=== PATIENT | female | born 1980 | race Caucasian/White ===

== ENCOUNTER 2016-07-24 15:05 | Inpatient (IN) | payer OTHER ==
--- NOTE | ~2016-07-24 | OR ---
Unit #: [id number] #: [id number] Patient: MARISOL STEVE [id number] [address] [place], [place] [address] [id number] I MR#: [id number] NAME: MARISOL STEVE ROOM: 218 Date of Procedure: 07/25/2016 Admission Date: 07/24/2016 Surgeon: Juan Taylor M.D. : 1980 Attending Physician: Lon Watts M.D. Primary Care Physician: Jeff Azevedo M.D. OPERATIVE REPORT PREOPERATIVE DIAGNOSES Abdominal pain, reported rectal bleeding, stable hemoglobin. POSTOPERATIVE DIAGNOSIS Mild gastritis. Otherwise normal upper and lower endoscopy. ANESTHESIA Monitored anesthesia. INDICATIONS FOR PROCEDURE A 36-year-old female with history of adenomatous polyps of the colon and family history of colon cancer, who was admitted to hospital because of abdominal pain and reported GI bleed. She also complains of nausea. Also on CT scan, there was question of an intraabdominal mass in the lower abdomen, but on further review it appears to have been present since 2012. 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 DESCRIPTION OF PROCEDURE The patient was transported from her hospital room to the endoscopy suite. After appropriate monitoring and positioning, a bite block was placed and she was sedated by the anesthesiologist. Endoscope was passed through the oral cavity in the esophagus. Under direct vision, we passed through the esophagus and into the stomach, insufflated the stomach, and she had [id number] pangastritis. Biopsy for CLOtest was taken and then biopsy for pathology was taken. I easily passed through the pylorus down the third and fourth portion of duodenum. Duodenum and duodenal bulb were normal. As, I came back in the stomach, I retroflexed the scope and no other findings in the upper fundus or cardia were noted. As, I came back in a retrograde fashion, GE junction was well demarcated with no evidence of esophagitis or [place] mucosa. The esophageal mucosa was normal and the larynx was normal. After completion of the upper scope, the patient was repositioned. On rectal examination, there was no local anorectal pathology. Digital examination was normal. There was no hemorrhoidal disease, no fissure, no fistula. Colonoscope was passed through the anal verge and throughout the extent of the colon to the cecum, where the appendiceal orifice and ileocecal valve were photodocumented. On careful antegrade and retrograde visualization, no abnormalities were noted throughout the colon and rectum. In particular, I retroflexed the scope in the rectum and there was no internal hemorrhoidal disease. Preoperatively, the patient mentioned she thought there might be a foreign body in rectum from her enema, but no foreign body was encountered. The Unit #: [id number] #: [id number] Patient: MARISOL STEVE patient tolerated the procedure well and transported to recovery in stable condition. Findings were reported to her fiance. I will resume her regular diet. On review of the CT scan, I think the finding of fatty necrosis or omental infarction has been stable for at least 4 years and is of a little clinical significance. Dictated by... Lamar Allison/jair TD: 07/26/2016 03:46 JOB #: [id number] OPERATIVE REPORT Page 1 of 1 X Juan Taylor MD PROCEDURE OPERATIVE NOTE
--- NOTE | ~2016-07-24 | MR2 ---
[facility] A Service of [facility] & [facility] RADIOLOGY TEXT RESULTS PATIENT: MARISOL STEVE LOCATION: [facility] 218-01 : 80 UNIT #: [id number] AGE: [address]: Lon Watts MD SEX: F ORDER DR: [id number] [facility] [address] [place], [place] [address] [id number] I MR#: [id number] Acc #: [id number] NAME: MARISOL STEVE. : 1980 SEX: F STUDY DATE/TIME: 07/27/2016 12:16 UNIT: [facility] ROOM: 218 STUDY DESCRIPTION: MR Abdomen WWo Cont Attending Physician: Lon Watts M.D. Ordering Physician: Lon Watts M.D. Primary Care Physician: Jeff Azevedo M.D. MRI CENTER REPORT This report is preliminary unless electronic signature is present. EXAM MRI abdomen without and with IV gadolinium. HISTORY Abdomen pain and vomiting for 1 week. FINDINGS MRI abdomen was performed without and with IV gadolinium. No hepatic mass or biliary dilatation. Cholecystectomy. Mild splenic enlargement measuring 14 cm. The pancreas, kidneys, and adrenal glands are normal. No ascites. Normal caliber abdominal aorta. No biliary or pancreatic ductal dilatation. IMPRESSION 1. No suspicious findings in the abdomen. No abnormal enhancement. 2. Cholecystectomy. 3. Mild splenic enlargement measuring 14 cm. Dictated by... Liam Thomas M.D. THIS IS AN ELECTRONICALLY VERIFIED REPORT Liam Thomas M.D. at 07/28/2016 10:57 PM DFL/ihsan TD: 07/28/2016 03:48 JOB #: [id number] MRI CENTER REPORT Page 1 of 1 COPY
--- NOTE | ~2016-07-24 | CT2 ---
[facility] A Service of [facility] & [facility] RADIOLOGY TEXT RESULTS PATIENT: MARISOL STEVE LOCATION: [facility] 218-01 : 80 UNIT #: [id number] AGE: [address]: Lon Watts MD SEX: F ORDER DR: [id number] [facility] [address] [place], [place] [address] [id number] I MR#: [id number] Acc #: [id number] NAME: MARISOL STEVE. : 1980 SEX: F STUDY DATE/TIME: 07/26/2016 11:02 UNIT: C2A ROOM: 218 STUDY DESCRIPTION: CT Abd and Pelv W Cont Attending Physician: Lon Watts M.D. Ordering Physician: Bruce Davidson III, M.D. Primary Care Physician: Jeff Azevedo M.D. MEDICAL IMAGING REPORT This report is preliminary unless electronic signature is present EXAM CT abdomen and pelvis with contrast INDICATIONS Lower pelvic pain for 1 week. Nausea for 1 week, rectal bleeding for 3-[address] scan of the abdomen and pelvis was performed following the administration of IV contrast. Coronal and sagittal reformatted images were obtained. Comparison is made with 06/23/2014. This CT exam was performed with one or more of the following radiation dose reduction techniques: automatic exposure control, adjustment of mA and/or kV according to patient size, and iterative reconstruction. FINDINGS Lung bases are clear. The liver is unremarkable. Cholecystectomy. Spleen is unremarkable. The kidneys, adrenal glands and pancreas are unremarkable. Redemonstrated in the lower anterior portion of the peritoneum just beneath the rectus musculature is a lobulated soft tissue attenuation nodule which has been present since at least May 2014 and has slightly decreased in size. On today's study it measures approximately 2.3 x 1.6 cm. On the previous study it measured 2.4 x 1.9 cm. The exact etiology is uncertain however given its interval decrease in size, this would favor a benign etiology. Pelvis: The colon is unremarkable. The appendix is normal. There is no free fluid. The bone windows are unremarkable. STS. [facility] A Service of [facility] & [facility] RADIOLOGY TEXT RESULTS PATIENT: MARISOL STEVE LOCATION: [place] [address] : [birth year] UNIT #: [id number] AGE: [address]: Lon Watts MD SEX: F ORDER DR: IMPRESSION 1. There is a chronic soft tissue attenuation nodular structure within the anterior portion of the abdomen just beneath the rectus musculature as described above. It has been present since at least May 2014 and has been decreased in size slightly. The exact etiology is uncertain however it is of doubtful clinical significance, and the interval decrease in size favors a benign etiology. 2. There has been a prior cholecystectomy. 3. The remainder of the study is unremarkable. Dictated by... Justin Tarango M.D. THIS IS AN ELECTRONICALLY VERIFIED REPORT Justin Tarango M.D. at 07/26/2016 4:05 PM NABOR/james TD: 07/26/2016 12:48 JOB #: [id number] MEDICAL IMAGING REPORT Page 1 of 1 COPY
--- NOTE | ~2016-07-24 | DS ---
Unit #: [id number] #: [id number] Patient: CHRISTINA HARDEN [id number] [address] [place], [place] [address] [id number] I MR#: [id number] NAME: CHRISTINA HARDEN. ROOM: 218 Age: 36 Sex: F Admission Date: 07/24/2016 : 1980 Discharge Date: 07/29/2016 Attending Physician: Lon Watts M.D. Primary Care Physician: Jeff Azevedo M.D. DISCHARGE SUMMARY CONSULTATION DURING HOSPITALIZATION 1. Dr. Berry. 2. Dr. Taylor. PROCEDURE PERFORMED DURING HOSPITALIZATION 1. Dr. Taylor - status post endoscope. Patient has mild to moderate band gastritis. Biopsies have been taken, results are still pending. Patient's duodenum and duodenal bulb are normal. 2. Status post colonoscopy. No abnormality was noted throughout the colon and rectum as per Dr. Taylor. There were no internal hemorrhoids. Preoperatively, patient had mentioned she thought there was a foreign body in the rectum from her enema but no foreign body was encountered. LAB WORKUP ON DISCHARGE Sodium 134, potassium 4.1, chloride 104, BUN 11, creatinine 1.0, calcium 8.2, WBC 8.2, hemoglobin 15.1, hematocrit 46.4 and platelet count of 219. Urine culture is no growth. PT/INR is 10.4 and 1.0. RADIOLOGICAL STUDIES DONE DURING HOSPITALIZATION 1. CT scan of the abdomen and pelvis which showed chronic soft tissue attenuation nodular structure within the anterior portion of the abdomen just beneath the rectus musculature as described in explanation. It has been present since 2012. It is of doubtful clinical significance and interval decrease in size favors a benign etiology. 2. MRI of the abdomen was done which shows no suspicious finding in the abdomen. No abnormal enhancement. Cholecystectomy. Mild splenic enlargement measuring 14 cm. 3. MRI of the pelvis was done that showed stable appearance of the rounded lobulated nodular lesion in the anterior left pelvis. This measures 1.9 x 2.5 cm. Given its long-term stability, it is likely benign. This lesion could be nodular fibrotic scarring. The patient does have a small ovarian cyst. HOSPITAL COURSE Ms. Christina Harden is a 36-year-old female who was admitted by Dr. Watts with abdominal pain and questionable GI bleed. On CT scan, there was a question of abdominal mass although that has been present since 2012. The patient does have a history of familial polyposis and family history of colon cancer. The patient was admitted to Med/Surg unit Unit #: [id number] #: [id number] Patient: CHRISTINA HARDEN at [facility]. LSA was consulted. Patient had EGD and colonoscopy done. Results are as above. Patient is stable. Her hemoglobin is stable. Doubt there was any major bleeding. We did try to get a percutaneous CT guided biopsy although, per interventional radiologist, this is too small to do any biopsy and it seemed like it is a benign lesion. The patient is being discharged home. I have given extensive information. I have given even the printout of CT scans from 2014 and from 2016 and explained to patient at length that it seems to be a chronic fibrotic scarring possible, even per Dr. Taylor. Per Dr. Taylor, it could be a fatty necrosis or omental infarction which has been stable for at least four years. It is of little significance. This was explained to patient at length. Nurse was present in the room while discussion. EXAMINATION ON DISCHARGE Blood pressure is 142/72, respiratory rate 18, pulse is 79, temperature 98.0, oxygen saturation is 100%. CHEST has fair air entry. CVS is regular rhythm. ABDOMEN is soft. DISCHARGE INSTRUCTIONS The patient is being discharged home in stable condition. MEDICATIONS As per Med Rec. Follow up with primary care provider in one week. Follow up with Dr. Alcala in three to four weeks. DISCHARGE MEDICATIONS Most of the medications are as home medications which are: 1. Imitrex, one to two tablets as needed for migraine. 2. Zocor 10 mg daily. 3. Ibuprofen 800 mg q.8 p.r.n. which we are advising patient to hold off on because she does have some mild gastritis. 4. Pantoprazole 40 mg daily. 5. Cyanocobalamin 1000 mcg injection q. monthly, continue home dose. 6. Vitamin D, continue home dose. 7. Topamax 100 mg b.i.d. 8. Wellbutrin 150 mg b.i.d. 9. Desyrel 100 mg at bedtime. 10. Zofran on a p.r.n. basis. 11. Hydroxyzine 25 mg t.i.d. 12. Ambien 10 mg q. h.s. 13. Propranolol 10 mg daily. Dictated by... Lamar Tyler/rey TD: 07/30/2016 08:06 JOB #: [id number] Unit #: [id number] #: [id number] Patient: CHRISTINA HARDEN DISCHARGE SUMMARY Page 1 of 1 X Tatyana Mosqueda MD X DISCHARGE SUMMARY
--- NOTE | ~2016-07-24 | CO ---
Unit #: [id number] #: [id number] Patient: MARISOL STEVE [id number] [address] [place], [place] [address] [id number] I MR#: [id number] NAME: MARISOL STEVE. ROOM: 218 Age: 36 Sex: F Admission Date: 07/24/2016 : 1980 Attending Physician: Lon Watts M.D. Primary Care Physician: Jeff Azevedo M.D. Consultation Date: 07/24/2016 CONSULTATION REPORT BRIEF HISTORY Patient is a 36 year old with a five-day history of abdominal pain which she describes as suprapubic to epigastric type pain, intermittent crampy-type pain. She has also had bright red blood per rectum and dark blood over the same timeframe. No fevers or chills. No trauma. She does have a history of colonic polyps, has had multiple colonoscopies and no colon resection. PAST HISTORY Gastroesophageal reflux disease. She has had a laparoscopy. MEDICTAIONS Propranolol, simvastatin, proton pump inhibitor, Ambien, trazodone. SOCIAL HISTORY No smoking. No alcohol. FAMILY HISTORY Strong family history of colon cancer with mother dying of colon cancer at age 50. REVIEW OF SYSTEMS No cardiopulmonary complaints at this time. PHYSICAL EXAMINATION GENERAL: She is awake, alert, appropriate. VITAL SIGNS: Currently afebrile. HEENT: Unremarkable. NECK: Supple. No JVD. Trachea midline. LUNGS: Clear to auscultation bilaterally. Breath sounds symmetric. CARDIOVASCULAR: Regular rate and rhythm. ABDOMEN: Her abdomen is soft. It is diffusely tender. No rebound. No masses or palpable hernias. EXTREMITIES: No cyanosis, clubbing or edema. DIAGNOSTIC STUDIES LABORATORY: Labs show a white count of 11, hemoglobin 15. IMAGING: CT scan shows a 3 cm mass in the anterior pelvis separate from the colon. ASSESSMENT 1. Rectal bleed. Unit #: [id number] #: [id number] Patient: MARISOL STEVE 2. A history of colonic polyps. 3. Abdominal mass. PLAN Recommend EGD and colonoscopy. Would then consider diagnostic laparoscopy. Dictated by... Umang Berry M.D. REVA/aaron TD: 07/24/2016 22:04 JOB #: [id number] CONSULTATION REPORT Page 1 of 1 X Umang Berry MD CONSULTATION REPORT
--- NOTE | ~2016-07-24 | BMI ---
[facility] Nutrition Therapy DATE: 07/25/16 Patient: MARISOL STEVE Physician: MOHSEN Address: [address] Room/Bed: [address] [place] [address], Zip: [place] [address] Admit Date: 07/24/16 Date of : [birth year] Height: 5 2 Weight: 239 108.86 HIGH BMI NOTE: DX: 36 Y.O. FEMALE ADMITTED FOR GIB ANTHROPOMETRICS: 5'2", WT: 239# (109 KG), BMI: 43.7 DIET: REGULAR INTERVENTION: 1. REGULAR DIET RECOMMENDATIONS: 1. RECOMMEND TO CHANGE CURRENT DIET ORDER TO HH TO PROMOTE GRADUAL WEIGHT LOSS TOWARDS HEALTHY BMI (19.0-25.0) OR +/-10%IBW RD WILL F/U PER PROTOCOL Respectfully, AMY LION MS, RD, LD Food and Nutritional Services [facility] cc: client file
--- NOTE | ~2016-07-24 | HP ---
Unit #: [id number] #: [id number] Patient: CHRISTINA STEVE [id number] [address] [address] [id number] I MR#: [id number] NAME: CHRISTINA STEVE. ROOM: 218 Age: 36 Sex: F Admission Date: 07/24/2016 : 1980 Attending Physician: Lon Watts M.D. Primary Care Physician: Jeff Azevedo M.D. HISTORY AND PHYSICAL ADMISSION DIAGNOSES 1. Abdominal pain. 2. Questionable gastrointestinal bleed. 3. Abdominal mass with the history of familial polyposis and family history of colon cancer. 4. History of chronic headaches. 5. Dyslipidemia. 6. Depression. HISTORY OF PRESENT ILLNESS Ms. Christina Steve is a 36-year-old female, a patient of Dr. Jeff Azevedo, who was seen by Dr. Azevedo and worked up and was diagnosed with the abdominal mass as an outpatient. Patient does have a history of familial polyposis. She was under extensive surveillance with the multiple c-scopes throughout her young life. Patient was having abdominal pain along with some bloody stools for last five days, again was seen by Dr. Azevedo, was diagnosed with the abdominal mass and UTI and was directly admitted. She is denying any acute chest pain, denying any headache or dizziness, complains of subjective fever and chills, denies any nausea or vomiting, complains about lower abdominal pain which is sharp and throughout the abdomen, without any radiation to any other parts of the body. No alleviating or aggravating factors. Pain is intermittent, 6 or 8/10. Patient also complains of some bloody stools, denies any bloody emesis. REVIEW OF SYSTEMS A 12-point review of systems on this patient is basically negative except as above. PAST MEDICAL HISTORY Past medical history is significant for: 1. History of depression. 2. Dyslipidemia. 3. Also colon polyps. PAST SURGICAL HISTORY Past surgical history is significant for: 1. Multiple c-scopes. 2. Cholecystectomy. HOME MEDICATIONS Home medications include sumatriptan, ibuprofen, Zofran, vitamin D2, hydroxyzine, topiramate, Zocor, propranolol, Wellbutrin, pantoprazole, Unit #: [id number] #: [id number] Patient: CHRISTINA STEVE Ambien, Desyrel and B12. ALLERGIES Morphine. SOCIAL HISTORY She is an active smoker, denies any alcohol or illicit drugs. FAMILY HISTORY As above, positive for colon cancer. PHYSICAL EXAMINATION GENERAL: On physical exam patient is a 36-year-old female not in acute distress. VITAL SIGNS: Blood pressure 131/86. Heart rate is 86. Respirations 18. Temperature 98.9. HEENT: Head is atraumatic. Pupils equal, round and reactive to light and accommodation. Extraocular muscles intact. Oropharynx clear. NECK: Neck is supple. No mass. No JVD. No bruits. CHEST: Chest is diminished at the bases, otherwise clear. CARDIOVASCULAR EXAM: With S1 and S2, no murmurs. ABDOMEN: Abdomen is soft, obese, tender to palpation throughout without any rebound or acute abdominal signs. Bowel sounds are diminished. EXTREMITIES: Lower extremities without any edema. DIAGNOSTIC STUDIES LABORATORY: White count 11.7, hemoglobin and hematocrit 15.8 and 48. Chemistry basically unremarkable. ASSESSMENT AND PLAN 1. Abdominal pain with the questionable gastrointestinal bleed: Continue IV PPI. Monitor hemoglobin and hematocrit, stable. Continue supportive care. She is on Dilaudid and Zofran and is status post evaluation per surgery regarding abdominal mass. Scheduled for c-scope in the morning. 2. History of chronic headache: Continue home meds. 3. Dyslipidemia: Continue home meds. 4. Depression: Continue home meds. 5. GI and DVT prophylaxis: Continue PPI and SCDs. 6. Questionable urinary tract infection: Check urine culture and UA. Continue empiric Rocephin. Dictated by Lon Watts M.D. OC/aaron TD: 07/24/2016 18:30 JOB #: [id number] Unit #: [id number] #: [id number] Patient: CHRISTINA STEVE HISTORY AND PHYSICAL Page 1 of 1 X Lon Watts MD HISTORY AND PHYSICAL
--- NOTE | ~2016-07-24 | MR151 ---
[facility] A Service of [facility] & [facility] RADIOLOGY TEXT RESULTS PATIENT: MARISOL STEVE LOCATION: A 218-01 : 80 UNIT #: [id number] AGE: [address]: Lon Watts MD SEX: F ORDER DR: [id number] [facility] [address] [place], [place] [address] [id number] I MR#: [id number] Acc #: [id number] NAME: MARISOL STEVE. : 1980 SEX: F STUDY DATE/TIME: 07/27/2016 15:30 UNIT: [facility] ROOM: 218 STUDY DESCRIPTION: MR Pelvis WWo Contrast Attending Physician: Lon Watts M.D. Ordering Physician: Daniel Cardona M.D. Primary Care Physician: Jeff Azevedo M.D. MRI CENTER REPORT This report is preliminary unless electronic signature is present. EXAM MRI pelvis without and with IV gadolinium. HISTORY Abdomen pain and vomiting. Low abdomen pain for 1 week. FINDINGS MRI pelvis was performed without and with IV gadolinium. FINDINGS There is a slightly lobulated rounded mass in the anterior pelvis to the left of midline, deep to the left rectus muscle, intermediate to low signal intensity on both T1 and T2, corresponding to the nodular lesion noted on multiple prior CTs 05/04/2012, 06/23/2014 and 07/26/2016. This measures approximately 1.9 x 2.5 cm, stable compared to 06/23/2014, and the long-term stability favors a benign etiology. The lesion enhances moderately with gadolinium. No additional soft tissue nodule. There are small bilateral ovarian cysts, likely incidental and physiologic. These measure up to 2.5 cm in the left ovary. Minimal free fluid in the pelvis is also likely incidental and physiologic. Hysterectomy. No bowel dilatation. IMPRESSION 1. Stable appearance of the rounded lobulated nodular lesion in the anterior left pelvis just to the left of midline deep to the rectus abdominus muscle, corresponding to findings on recent CT and similar to findings on older CT examinations as well. This measures 1.9 cm x 2.5 cm and given its long-term stability is likely benign. This lesion enhances with gadolinium uniformly. Consider nodular fibrotic scarring. No additional pelvic nodule or mass. 2. Minimal free fluid in the pelvis and small ovarian cysts are incidental and physiologic. 3. Normal appendix. [facility]. [facility] A Service of [facility] & [facility] RADIOLOGY TEXT RESULTS PATIENT: MARISOL STEVE LOCATION: [place] [address] : [birth year] UNIT #: [id number] AGE: [address]: Lon Watts MD SEX: F ORDER DR: 4. Hysterectomy. Dictated by... Liam Thomas M.D. THIS IS AN ELECTRONICALLY VERIFIED REPORT Liam Thomas M.D. at 07/28/2016 10:57 PM DFL/ihsan TD: 07/28/2016 03:56 JOB #: [id number] MRI CENTER REPORT Page 1 of 1 COPY
[~2016-07-24 15:05] MED LIST: ACETAMINOPHEN PR; AMBIEN PO; ANAPROX DS550 M1 PO; BENTYL20 MG PO; DESYREL100 MG PO; EFFEXOR XR150 MG; FLEXERIL10 MG PO; HYDROXYZINE HCL25 M1 PO; IBUPROFEN800 MG PO; KLONOPIN0.5 MG; NITROFURANTOIN100 M3 PO; PANTOPRAZOLE SO40 MG PO; PERCOCET10 PO; PHENERGAN12.5 MG/SU PR; PHENERGAN25 M1 PO; PHENERGAN25 MG PO; PHENERGAN50 MG/SUPP; PREDNISONE PO; PROPRANOLOL HCL10 MG PO; PROTONIX PO; REQUIP0.25 MG PO; SUMATRIPTAN SU100 MG PO; TOPIRAMATE100 MG PO; TUMS500 MG; VITAMIN B 12 INJECT; VITAMIN D250000 UNIT PO; WELLBUTRIN SR150 M1 PO; ZOCOR10 MG PO; ZOFRAN PO
[2016-07-24 15:26] LABS: HEMOGLOBIN 15.8 gm/dL (12.0-16.0); MEAN CELL VOLUME 87.9 FL (83-96); MEAN CORPUSCULAR HEMOGLOBIN 28.9 PG (28-34); MEAN CORPUSCULAR HGB CONC 32.9 g/dL (30-36); MEAN PLATELET VOLUME 8.5 FL (6.5-11.5); RED BLOOD COUNT 5.46 X10e (3.90-5.30); RED CELL DISTRIBUTION WIDTH 14.1 % (11.0-15.5); WHITE BLOOD COUNT 11.7 X10e3 (4.0-10.5)
[2016-07-24 15:51] LABS: ALBUMIN SERUM 4.4 g/dL (3.5-5.0); BILIRUBIN,TOTAL 0.5 mg/dL (0.2-2.0); CALCIUM SERUM 8.9 mg/dL (8.4-10.2); GLOM FILT RATE Estimated 72.5 mL/min (>60); POTASSIUM 4.9 mmol/L (3.5-5.1); PROTEIN TOTAL SERUM 7.7 g/dL (6.0-8.3)
[2016-07-24] MEDS ORDERED: CYANOCOBAL1000 MCG/1 INJ (16:06)
[2016-07-24 18:32] LABS: URINE APPEARANCE CLEAR; URINE BILIRUBIN NEG (NEG); URINE BLOOD NEG (NEG); URINE COLOR YELLOW; URINE GLUCOSE NEG (NEG); URINE KETONE NEG (NEG); URINE LEUKOCYTE ESTERASE NEG (NEG); URINE NITRATE NEG (NEG); URINE PROTEIN NEG (NEG); URINE SPECIFIC GRAVITY 1.007 (1.003-1.035); URINE UROBILINOGEN 0.2 MG/DL (NEG)
[2016-07-24 19:48] LABS: CULTURE INDICATED? NO
[2016-07-25 06:13] LABS: BASOPHIL# 0.1 X10e3 (0-0.3); BASOPHIL% 0.5 % (0-2.5); EOSINOPHIL# 0.2 X10e3 (0-0.7); EOSINOPHIL% 1.4 % (0.0-7.0); HEMATOCRIT 47.1 % (35.0-45.0); HEMOGLOBIN 15.5 gm/dL (12.0-16.0); LYMPHOCYTE# 2.7 X10e3 (1.0-3.5); LYMPHOCYTE% 20.2 % (17.0-45.0); MEAN CELL VOLUME 87.7 FL (83-96); MEAN CORPUSCULAR HEMOGLOBIN 28.8 PG (28-34); MEAN CORPUSCULAR HGB CONC 32.9 g/dL (30-36); MEAN PLATELET VOLUME 8.4 FL (6.5-11.5); MONOCYTE% 7.8 % (3.0-12.0); NEUTROPHIL# 9.2 X10e3 (1.5-7.1); NEUTROPHIL% 70.1 % (40-75); PLATELET COUNT 299 X10e3 (140-420); RED BLOOD COUNT 5.38 X10e (3.90-5.30); RED CELL DISTRIBUTION WIDTH 13.9 % (11.0-15.5); WHITE BLOOD COUNT 13.2 X10e3 (4.0-10.5)
[2016-07-25 06:17] LABS: DIFF IND NO
[2016-07-25 06:49] LABS: PARTIAL THROMBOPLASTIN TIME 30.2 SECONDS (23.5-31.3); PROTHROMBIN TIME (PATIENT) 10.4 SECONDS (9.6-11.5)
[2016-07-25 07:13] LABS: CALCIUM SERUM 8.7 mg/dL (8.4-10.2); GLOM FILT RATE Estimated 72.5 mL/min (>60); POTASSIUM 4.3 mmol/L (3.5-5.1)
[2016-07-26 05:37] LABS: HEMATOCRIT 43.3 % (35.0-45.0); HEMOGLOBIN 14.3 gm/dL (12.0-16.0); MEAN CELL VOLUME 87.5 FL (83-96); MEAN CORPUSCULAR HEMOGLOBIN 28.9 PG (28-34); MEAN PLATELET VOLUME 8.3 FL (6.5-11.5); RED BLOOD COUNT 4.94 X10e (3.90-5.30); RED CELL DISTRIBUTION WIDTH 14.1 % (11.0-15.5); WHITE BLOOD COUNT 8.9 X10e3 (4.0-10.5)
[2016-07-26 06:36] LABS: CALCIUM SERUM 8.4 mg/dL (8.4-10.2); GLOM FILT RATE Estimated 72.5 mL/min (>60); POTASSIUM 4.4 mmol/L (3.5-5.1)
[2016-07-27 05:06] LABS: HEMATOCRIT 43.7 % (35.0-45.0); HEMOGLOBIN 14.4 gm/dL (12.0-16.0); MEAN PLATELET VOLUME 8.2 FL (6.5-11.5); RED BLOOD COUNT 4.97 X10e (3.90-5.30); RED CELL DISTRIBUTION WIDTH 14.1 % (11.0-15.5); WHITE BLOOD COUNT 8.5 X10e3 (4.0-10.5)
[2016-07-27 06:15] LABS: CALCIUM SERUM 8.5 mg/dL (8.4-10.2); GLOM FILT RATE Estimated 72.5 mL/min (>60); POTASSIUM 4.2 mmol/L (3.5-5.1)
[2016-07-28 11:04] LABS: HEMATOCRIT 46.4 % (35.0-45.0); HEMOGLOBIN 15.1 gm/dL (12.0-16.0); MEAN CELL VOLUME 88.8 FL (83-96); MEAN CORPUSCULAR HEMOGLOBIN 28.8 PG (28-34); MEAN CORPUSCULAR HGB CONC 32.5 g/dL (30-36); MEAN PLATELET VOLUME 8.4 FL (6.5-11.5); RED BLOOD COUNT 5.22 X10e (3.90-5.30); RED CELL DISTRIBUTION WIDTH 13.9 % (11.0-15.5); WHITE BLOOD COUNT 8.2 X10e3 (4.0-10.5)
[2016-07-28 11:21] LABS: PARTIAL THROMBOPLASTIN TIME 28.6 SECONDS (23.5-31.3); PROTHROMBIN TIME (PATIENT) 10.2 SECONDS (9.6-11.5)
[2016-07-28 11:26] LABS: CALCIUM SERUM 8.2 mg/dL (8.4-10.2); GLOM FILT RATE Estimated 72.5 mL/min (>60); POTASSIUM 4.1 mmol/L (3.5-5.1)
== END 2016-07-29 10:54 | disposition home or self-care (01) | DRG 392 ==
LOC: C2A 15:05 → C4C 07-27 00:50 → C2A 07-27 01:10
PROVIDERS: Hospitalist; Internal Medicine; Specialist
PROC: 0DB68ZX Excision of Stomach, Via Natural or Artificial Opening Endoscopic, Diagnostic (ICD-10-PCS; principal; 2016-07-25 07:30)
PROC: 0DJD8ZZ Inspection of Lower Intestinal Tract, Via Natural or Artificial Opening Endoscopic (ICD-10-PCS; 2016-07-25 07:30)
DX: R10.9 Unspecified abdominal pain (principal); F32.9 Major depressive disorder, single episode, unspecified; K29.70 Gastritis, unspecified, without bleeding; Z88.5 Allergy status to narcotic agent; K21.9 Gastro-esophageal reflux disease without esophagitis; Z80.0 Family history of malignant neoplasm of digestive organs; E78.5 Hyperlipidemia, unspecified; Z86.010 Personal history of colon polyps; Z90.49 Acquired absence of other specified parts of digestive tract; F17.210 Nicotine dependence, cigarettes, uncomplicated; G43.909 Migraine, unspecified, not intractable, without status migrainosus; R19.00 Intra-abdominal and pelvic swelling, mass and lump, unspecified site
CPT/HCPCS: 72197; 74177; 74183; 80048; 80053; 81003; 85025; 85027; 85610; 85730; 87077; 87086; 88305; 88312; A9577; C9113; J0696; J1170; J2250; J2405; J2765; J3420; Q9967